=== PATIENT | male | born 1980 | race Caucasian/White ===

== ENCOUNTER 2017-04-26 11:13 | Emergency (ER) | payer OTHER ==
[~2017-04-26] VITALS: Ht 167.6 cm; Wt 108.9 kg
--- NOTE | ~2017-04-26 | EKG ---
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 : 1980 Requested By: Omar Rodriguez Order Number: [id number] MD: Anurag Drake Measurements Intervals [place] Rate: 63 P: 30 DE: 243 QRS: 16 QRSD: 91 T: 19 QT: 380 QTc: 389 Interpretive Statements Sinus rhythm Prolonged DE interval ST elev, probable normal early repol pattern Baseline wander in lead(s) V1 No previous ECG available for comparison Electronically Signed On 04-26-2017 16:52:55 EPIDEMIOLOGIST by Anurag Drake [email or web address] <ELECTRONICALLY SIGNED> By: Anurag Drake MD 04/26/17 1652 1234 1234 Anurag Drake MD /ACIHA
[2017-04-26] MEDS ORDERED: OXYCODONE HCL 55 MG PO (12:25)
== END 2017-04-26 12:48 | disposition home or self-care (01) ==
LOC: ER 11:13
DX: R07.89 Other chest pain (principal); Z87.891 Personal history of nicotine dependence; W19.XXXA Unspecified fall, initial encounter; Y93.89 Activity, other specified; Y92.89 Other specified places as the place of occurrence of the external cause; Y99.8 Other external cause status